=== PATIENT | female | born 1975 | race Caucasian/White ===

== ENCOUNTER 2021-01-31 12:16 | Day surgery (SDC) | payer OTHER, SELFPAY ==
[2021-01-24 11:14] VITALS: BMI 27.4
[2021-01-31] VITALS (7 sets, daily range): BP systolic 86–107; BP diastolic 45–70; PULSE 57–76; RESP 16–18; TEMP 36.1–36.6; O2SAT 97–100
--- NOTE | 2021-01-31 12:59 | P.CONAN_ITS ---
[facility] Past Medical History Medical History Asthma Hypothyroidism Transient atrial fibrillation Functional capacity: independent ambulation Patient : No Family History Family history of problems with anesthesia: No Surgical History Surgical History History of tubal ligation S/P anal fissurectomy History of Problems with Anesthesia: No Social History Social History Are you a primary care team assistant to a significant other at home: No Do you presently have visiting nurse or other home services: No Patient Tobacco Use Status: Never used Tobacco Have you been hit, kicked, punched, or otherwise hurt by someone within the past year? If so, by whom?: No Are you DNR?: No Advance Directives: No Advance Directives Information Provided: No Advance Directives on File: No Recently lost weight without trying: No Eating poorly because of decreased appetite: No Nutrition Risks: No Nutritional Risk Patient : No FDLMP: 01/20/21 Meds Allergies Allergy/AdvReac Type Severity Reaction Status Date / Time mushroom Allergy Unknown Verified 01/28/21 12:56 Penicillins Allergy Rash Verified 01/24/21 11:10 Active Medications: Current Medications Generic Name Dose Route Start Last Admin Trade Name Freq PRN Reason Stop Dose Admin Sodium Biphosphate/Sodium Phosphate 133 ml 01/31/21 11:33 Sodium Phosphate,[place]-Dibasic 133 Ml Enema AR ONCE PRN Poor Colonoscopy Prep Results Home Medications Medication Instructions Recorded Confirmed Last Taken Type albuterol sulfate 90 mcg/actuation 2 puff INHALATION Q6H PRN 01/24/21 01/24/21 Unknown History aerosol inhaler (ProAir HFA) ibuprofen 200 mg tablet (Advil) 200 mg PO Q6H PRN 01/24/21 01/24/21 Unknown History thyroid (pork) 60 mg tablet 120 mg PO BID 01/24/21 01/24/21 Unknown History (Isai Thyroid) Exam Exam Date and Time: January 31, 2021 1259 Height,Weight and Vital Signs: Height 5 ft 6.75 in Weight 78.925 kg Last Vital Signs Temp 97 F 01/31/21 12:55 Pulse 71 01/31/21 12:55 Resp 17 01/31/21 12:55 BP 107/70 01/31/21 12:55 Pulse Ox 99 01/31/21 12:55 Airway Mallampati Class: II TM Dist: >3cm Neck ROM: Full Heart: RRR Lungs: CTA Assessment and Plan Final Anesthetic Review Family History of Problems with Anesthesia: No History of Problems with Anesthesia: No
[2021-01-31] MEDS: Lactated Ringers 1,000 ML 50 ML IVCONT (13:12)
--- NOTE | 2021-01-31 15:30 | P.BOP_ITS ---
Brief Operative Note Date of Service: 01/31/21 Pre-op diagnosis: Rectal bleeding Post-op diagnosis: other (External hemorrhoids) Procedure: Colonoscopy to the cecum and TI Surgeon: Ravinder Trunog Anesthesia: MAC Was an Special Delivery Mail Carrier used for this Procedure?: No Estimated blood loss (mL): 0 Pathology: none sent Condition: stable Disposition: PACU
--- NOTE | 2021-01-31 15:48 | OP_ITS ---
SURGEON: Ravinder Truong MD INDICATIONS: The patient presents for evaluation of intermittent hematochezia. Full consent has been obtained from her for this, including risks of bleeding and perforation. PREOPERATIVE DIAGNOSIS: Hematochezia. POSTOPERATIVE DIAGNOSIS: PROCEDURE PERFORMED: Colonoscopy to cecum and terminal ileum. ESTIMATED BLOOD LOSS: COMPLICATIONS: ANESTHESIA: Monitored anesthesia care. ASSISTANTS: SPECIMENS: POSTOPERATIVE DIAGNOSES: Hematochezia, small external hemorrhoids. DESCRIPTION OF PROCEDURE: The patient was placed in the left lateral decubitus position. The digital rectal exam revealed small external hemorrhoids. The Olympus video pediatric colonoscope was entered into the rectum and advanced easily to the cecum. Once in the cecum, I did identify normal-appearing cecal pouch with appendiceal orifice and a normal-appearing ileocecal valve. The terminal ileum was cannulated and appeared normal. Scope was withdrawn back in the colon. The entire cecum and ileocecal valve appeared normal. The scope was slowly withdrawn assessing all mucosal surfaces carefully. Preparation was excellent. I did not visualize any sign of polyps, colitis, nor angiodysplasia. In the rectum, scope was retroflexed visualizing normal rectal mucosa and no other pathology. The scope was straightened out and withdrawn from the patient. She tolerated the procedure well and was returned to recovery area in stable condition. IMPRESSION: Normal colonoscopy other than small external hemorrhoids. PLAN: I would recommend a repeat colonoscopy at age 51 for further screening. I would recommend that she use some topical Preparation H or Anusol cream on a p.r.n. basis for any symptoms from the external hemorrhoids. If her symptoms remain problematic in regard to the hemorrhoids, I would then recommend referral to Dr. Arevalo for colorectal surgery consult. She will use Levsin on a p.r.n. basis for any rectal spasm as well. If things are stable, she will see me on a p.r.n. basis. This has been discussed with her . MD YULI Liu/JOSEPH / [id number]
== END 2021-01-31 15:58 | disposition home or self-care (01) ==
PROVIDERS: PCP Physician Assistant Medical; Visit Provider Internal Medicine
PROC: 0DJD8ZZ Inspection of Lower Intestinal Tract, Via Natural or Artificial Opening Endoscopic (ICD-10-PCS; CPT 45378; principal; 2021-01-31 13:30)
DX: K62.5 Hemorrhage of anus and rectum (principal); K59.4 Anal spasm; K64.4 Residual hemorrhoidal skin tags; J45.909 Unspecified asthma, uncomplicated; K58.8 Other irritable bowel syndrome; I48.91 Unspecified atrial fibrillation; E03.9 Hypothyroidism, unspecified; Z79.1 Long term (current) use of non-steroidal anti-inflammatories (NSAID); Z79.899 Other long term (current) drug therapy; Z88.0 Allergy status to penicillin
CPT/HCPCS: 45378